=== PATIENT | female | born 1975 | race Caucasian/White ===

== ENCOUNTER 2021-02-03 07:46 | Emergency (ER) | payer OTHER ==
[~2021-02-03] VITALS: Ht 172.7 cm; Wt 88.5 kg
[~2021-02-03 07:46] MED LIST: MULTIVITAMINS1 EAC7 PO; PRILOSEC20 MG PO; ZYRTEC10 M2 PO
[2021-02-03 07:50] VITALS: BP 141/84
[2021-02-03] MEDS ORDERED: PREDNISONE 20 M20 MG PO (08:08)
== END 2021-02-03 08:18 | disposition home or self-care (01) ==
LOC: ER 07:46
DX: T78.40XA Allergy, unspecified, initial encounter (principal); J45.909 Unspecified asthma, uncomplicated; Z79.899 Other long term (current) drug therapy; Z91.09 Other allergy status, other than to drugs and biological substances; X58.XXXA Exposure to other specified factors, initial encounter